=== PATIENT | female | born 1985 | race Caucasian/White ===

== ENCOUNTER → 2016-08-24 | Outpatient (CLI) | payer BC ==
[~2016-08-24] MED LIST: ATV5 PO; CLTP PO; CPR500 PO; PROM12.57 PO
--- NOTE | 2016-08-24 11:59 | DIAGNOSTIC IMAGING REPORT ---
HYSTEROSALPINGOGRAM CLINICAL HISTORY: Infertility testing. COMPARISON STUDY: No priors. FINDINGS: Fluoroscopic assistance was provided to the insulator technician in performing a hysterosalpingogram. The uterine cavity distends normally. No filling defects are identified. There is normal filling of the fallopian tubes, with free spillage of contrast into pelvis bilaterally. Fluoroscopy time: 0.2 minutes. IMPRESSION: Unremarkable hysterosalpingogram. The fallopian tubes are widely patent bilaterally. Electronically signed by: George Pimentel M.D. 08/24/2016 11:58 AM Dictated Date/Time: 08/24/2016 11:57 AM
== END | disposition home or self-care (01) ==
LOC: C.RAD 11:27
PROVIDERS: ATTEND Obstetrics & Gynecology
DX: N97.9 Female infertility, unspecified (principal)